=== PATIENT | female | born 1935 | race Caucasian/White ===

== ENCOUNTER 2016-07-05 10:26 | Inpatient (IN) | payer MEDICARE ==
[2016-07-05] VITALS (27 sets, daily range): BP systolic 32–73; BP diastolic 15–59; PULSE 69–118; RESP 0–28; Ht 144.8 cm; Wt 51.1 kg
[~2016-07-05] VITALS: Ht 144.8 cm; Wt 51.1 kg
[2016-07-05] MEDS ORDERED: NACL 0.9% 3 ML SYG IV SCH (11:30)
[2016-07-05] MEDS ORDERED: DOCUSATE SODIUM 100 MG CAP PO PRN (11:30)
[2016-07-05] MEDS ORDERED: ACETAMINOPHEN 325 MG TAB PO PRN (11:30)
[2016-07-05] MEDS ORDERED: morphine 2 MG INJ IV PRN (11:30)
[2016-07-05] MEDS ORDERED: MAGNESIUM HYDROXIDE 30ML CUP PO PRN (11:30)
[2016-07-05] MEDS ORDERED: ONDANSETRON 4 MG INJ IV PRN (11:30)
[2016-07-05] MEDS ORDERED: BISACODYL 10 MG SUPP PR PRN (11:30)
[2016-07-05] MEDS ORDERED: ACETAMINOPHEN 650 MG SUPP PR PRN (11:30)
[2016-07-05] MEDS ORDERED: SOD CHLORIDE 0.9% 1,000 ML IV ONE (11:30)
[2016-07-05] MEDS ORDERED: NORepinephrine 8MG/250 ML (PMX 250 ML ONE (11:40)
--- NOTE | 2016-07-05 11:57 | HP ---
Date/Time of Note Date/Time of Note DATE: 07/05/16 TIME: 11:50 Assessment/Plan VTE Prophylaxis VTE Prophylaxis Intervention: SCD's Assessment/Plan Chief Complaint/Hosp Course Assessment and plan 1. Suspect septic shock. Source at this time unknown. We'll follow up on purcell cultures. Patient remains hypotensive. Continue on IV fluids. We'll follow up on chest x-ray. We'll start empiric antibiotic therapy. Continue vasopressors for now. Will get ID consult 2. History of hypoxemic respiratory failure, vent dependent. We'll get director of physical security follow. Follow up on ABG. We'll check chest radiograph. We'll provide with bronchodilators. 3. History of pneumonia with aspiration. Follow up on x-ray. Continue pulmonary hygiene. Media Marketing Director follow. Continue antibiotics 4. Arterial thrombus right superficial femoral artery with collateral with also occlusion of the right posterior and anterior tibial arteries. Previously seen for this issue with no recommended intervention. Patient still remains with low platelets and high risk for bleed. We will monitor for now. 5. Thrombocytopenia. noted with low platelets. We'll transfuse 2 bags of platelets. 6. History of CKD. Follow up on renal panel 7. History of B cell non-Hodgkin's lymphoma. Of note patient is post excision and chemotherapy in 2009 8. Essential hypertension. Remains hypotensive at present. Continue on vasopressors for now. 9. hx of dyslipidemia. Will follow up fasting lipid panel. Disposition and plan: Patient's overall prognosis is poor. I did get ahold of patient's son: Chinmay, and after discussion. patient is now DNR. Will monitor in ICU. cont supportive care Discussed plan of care with Dr. Castro Problems: HPI/ROS Admit Date/Time Admit Date/Time Jul 05, 2016 at 10:48 Hx of Present Illness This is a 81-year-old female with past medical history of multinodular goiter with partial thyroidectomy, left breast lump likely for breast cancer, excision of neck mass with chemotherapy for B-cell non-Hodgkin's lymphoma, CKD, diastolic heart dysfunction, essential hypertension, dyslipidemia, was transferred out of [facility] respiratory facility after being found hypotensive. 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 It was noted that her previous admission she was initially admitted for a fall with right distal femur fracture. Subsequently after this she had respiratory distress from aspiration and is now vent dependent. She did have previous hospitalization with renal failure and malnutrition as well as thrombocytopenia. Currently patient admitted to ICU. She does remain hypotensive with blood pressure seen as low as 73/17. Labs currently pending. She does remain nonverbal. We will evaluate her for the aforementioned issues. ROS Unable to obtain due to patient's mental state PMH/Family/Social Past Medical History Medical/surgical history multinodular goiter with partial thyroidectomy, left breast lump likely for breast cancer, excision of neck mass with chemotherapy for B-cell non-Hodgkin's lymphoma, CKD, diastolic heart dysfunction, essential hypertension, dyslipidemia Family History Significant Family History: no pertinent family hx Social History Alcohol Use: none Smoking Status: Unknown if ever smoked Drug Use: none Exam/Review of Systems Vital Signs Vitals Vital Signs Date Time Temp Pulse Resp B/P Pulse Ox O2 Delivery O2 Flow Rate FiO2 07/05/16 11:10 111 23 100 35 Exam Exam General: Nonverbal, remains on trach. Hypertensive Eyes: [pupils equal round, Neck: Tracheostomy in place with noted blood clots surrounding Cardiac: [S1, S2 auscultated, regular rhythm and rate] Pulmonary: Coarse lung sounds auscultated bilaterally with noted rails GI: Soft minimally protuberant PEG tube in place Extremities: Edema bilateral upper and lower extremities +2 Skin: Ecchymosis seen on bilateral upper and lower extremities Neurologic: Nonverbal, does not follow commands Medications Medications Current Medications Sodium Chloride (NS) 1,000 ml @ 1,000 mls/hr Q1H ONCE IV Last administered on 07/05/16t 11:24; Admin Dose 1,000 MLS/HR; Start 07/05/16 at 11:30; Stop at 12:29 Ondansetron HCl (Zofran Inj) 4 mg Q6H PRN IV NAUSEA AND/OR VOMITING; Start at 11:30 Acetaminophen (Tylenol Tab) 650 mg Q6H PRN PO PAIN LEVEL 1-3 OR FEVER; Start at 11:30 Acetaminophen (Tylenol Supp) 650 mg Q6H PRN [place] PAIN LEVEL 1-3 OR FEVER; Start 07/05/16 at 11:30 Morphine Sulfate (morphine) 2 mg Q4H PRN IV SEVERE PAIN LEVEL 7-10; Start 07/05 at 11:30 Docusate Sodium (Colace) 100 mg Q12H PRN PO CONSTIPATION; Start 07/05/16 at 11: 30 Magnesium Hydroxide (Milk Of Mag) 30 ml DAILY PRN PO CONSTIPATION; Start at 11:30 Bisacodyl 10 mg 10 mg DAILY PRN [place] CONSTIPATION; Start 07/05/16 at 11:30 Norepinephrine 250 ml @ 1.875 mls/ hr TITRATE IV ; Start 07/05/16 at 12:00; Stop 07/05/16 at 16:00 Cefepime HCl 50 ml @ 100 mls/hr Q24H IVPB ; Start 07/05/16 at 13:00 Norepinephrine/ Dextrose (Levophed/D5W) 500 ml @ 0 mls/hr TITRATE IV ; Start at 16:00 JEFFERY TOURE Jul 05, 2016 11:57
[2016-07-05] MEDS ORDERED: VANCOMYCIN IV PER PHARMACY XX SCH (12:00)
[2016-07-05] MEDS ORDERED: NORepinephrine 8MG/250 ML (PMX 250 ML IV SCH (12:00)
--- NOTE | 2016-07-05 12:00 | RADRPT ---
PROCEDURE: XR Chest. CLINICAL INDICATION: Dyspnea TECHNIQUE: AP portable chest COMPARISON: 07/05/2016 FINDINGS: The cardiomediastinal silhouette is enlarged with tortuosity and atherosclerotic calcification of th e aortic arch. Left base atelectasis. Blunting of the costophrenic angle suggesting small pleural effusions. Mild vascular prominence. Right lower lobe patchy air space disease. . Support devices i n stable position. No pneumothorax. The osseous structures and soft tissues are unremarkable. IMPRESSION: Mild vascular prominence with blunting of the costophrenic angles suggesting small pleural effusions and/or atelectasis. Right lower lobe patchy air space disease. RPTAT:AAJJ Leno Carpenter Physician Date Time Electronically viewed and signed by Leno Carpenter Physician on 07/05/2016 12:00 JANUARY/
--- NOTE | 2016-07-05 12:03 | CONS ---
Date/Time of Note Date/Time of Note DATE: 07/05/16 TIME: 12:03 Consultation Date/Type/Reason Admit Date/Time Jul 05, 2016 at 10:48 Social History Alcohol Use: none Smoking Status: Unknown if ever smoked Drug Use: none Exam/Review of Systems Vital Signs Vitals Vital Signs Date Time Temp Pulse Resp B/P Pulse Ox O2 Delivery O2 Flow Rate FiO2 07/05/16 11:10 111 23 100 35 Medications Medications Current Medications Sodium Chloride (NS) 1,000 ml @ 1,000 mls/hr Q1H ONCE IV Last administered on 07/05/16t 11:24; Admin Dose 1,000 MLS/HR; Start 07/05/16 at 11:30; Stop at 12:29 Ondansetron HCl (Zofran Inj) 4 mg Q6H PRN IV NAUSEA AND/OR VOMITING; Start at 11:30 Acetaminophen (Tylenol Tab) 650 mg Q6H PRN PO PAIN LEVEL 1-3 OR FEVER; Start at 11:30 Acetaminophen (Tylenol Supp) 650 mg Q6H PRN IN PAIN LEVEL 1-3 OR FEVER; Start 07/05/16 at 11:30 Morphine Sulfate (morphine) 2 mg Q4H PRN IV SEVERE PAIN LEVEL 7-10; Start 07/05 at 11:30 Docusate Sodium (Colace) 100 mg Q12H PRN PO CONSTIPATION; Start 07/05/16 at 11: 30 Magnesium Hydroxide (Milk Of Mag) 30 ml DAILY PRN PO CONSTIPATION; Start at 11:30 Bisacodyl 10 mg 10 mg DAILY PRN IN CONSTIPATION; Start 07/05/16 at 11:30 Norepinephrine 250 ml @ 1.875 mls/ hr TITRATE IV ; Start 07/05/16 at 12:00; Stop 07/05/16 at 16:00 Cefepime HCl 50 ml @ 100 mls/hr Q24H IVPB ; Start 07/05/16 at 13:00 Norepinephrine/ Dextrose (Levophed/D5W) 500 ml @ 0 mls/hr TITRATE IV ; Start at 16:00 CARLY AVERY MD Jul 05, 2016 12:03
[2016-07-05 12:17] LABS: HEMATOCRIT 22.9 % (37.0-47.0); HEMOGLOBIN 7.7 g/dl (12.0-16.0); MEAN CORPUSCULAR HEMOGLOBIN 30.5 pg (29.0-33.0); MEAN CORPUSCULAR HGB CONC 33.7 g/dl (32.0-37.0); MEAN CORPUSCULAR VOLUME 90.5 fl (82.0-101.0); MEAN PLATELET VOLUME 9.4 fl (7.4-10.4); RED BLOOD COUNT 2.53 10^6/ul (4.20-5.40); RED CELL DISTRIBUTION WIDTH 17.5 % (11.5-14.5); WHITE BLOOD COUNT 0.9 10^3/ul (4.8-10.8)
[2016-07-05] MEDS ORDERED: PHENYLephrine 20MG IN 250 ML 250 ML ONE (12:22)
[2016-07-05 12:40] LABS: CONDITION 1; LH ANALYZER COMMENTS 1; PLATELET COUNT 14 10^3/UL (140-440); SUSPECT 1
[2016-07-05 12:43] LABS: CK-MB 4.94 ng/ml (0.0-2.4)
[2016-07-05 12:47] LABS: TROPONIN-I 0.034 ng/ml (0.00-0.12)
--- NOTE | 2016-07-05 12:58 | CONS ---
DATE OF ADMISSION: 07/05/2016 DATE OF CONSULTATION: 07/05/2016 TYPE OF CONSULTATION: Pulmonary. REASON FOR CONSULTATION: Septic shock, ventilator management. Thank you, Dr. Castro, for this consultation. HISTORY OF PRESENT ILLNESS: This is a 81-year-old lady who has been a patient at [facility] where she was admitted for ventilator weaning following recent open reduction internal fix ation complicated by respiratory failure requiring tracheostomy, transferred from [facility] to the ICU today for increasing shortness of breath, orthopnea and hypotension requiring i nitiation of vasopressor support. Of note, patient has had worsening thrombocytopenia and leukocyto sis over the past few days, currently being worked up. Complications also include C. difficile coli tis, acute pulmonary embolism, history of partial thyroidectomy for multinodular goiter, history of breast cancer with lumpectomy. MEDICATIONS: Per chart. ALLERGIES: NONE. SOCIAL HISTORY: Ex-smoker, no alcohol, no history of drug use. FAMILY HISTORY: Noncontributory. SYSTEMS REVIEW: A 12-point review of systems currently unable to perform. PHYSICAL EXAMINATION: GENERAL: Chronically ill appearing lady on mechanical ventilation. HEENT: Has a large excision wound with visible drainage around the trachea. VITAL SIGNS: Temperature 94, pulse is 100, blood pressure 100/40 on Levophed. NECK: Trach site as above. CARDIAC: S1, S2, tachycardia. CHEST: Diminished air entry bilaterally. ABDOMEN: Soft, nontender. No guarding or rebound. EXTREMITIES: No cyanosis, clubbing, 2+ edema. NEUROLOGIC: Generalized weakness. LABORATORY DATA: White count 2.3, hemoglobin 8.8, platelets of 14, BUN 85, creatinine 3.07. INR 1. 86. Urinalysis positive for UTI. IMPRESSION AND PLAN: 1. Septic shock, polymicrobial. Causes includes probable pneumonia. 2. Urinary tract infection. 3. Ongoing colitis. 4. Possible skin wound around the tracheostomy site. 5. Chronic respiratory failure secondary to above. 6. History of aortic regurgitation. 7. History of B-cell lymphoma. 7. Dysphagia with percutaneous endoscopic gastrostomy. 8. Acute renal failure with severe metabolic acidosis. PLAN: 1. Continue mechanical ventilation. 2. Continue broad-spectrum antibiotics. 3. Continue hematology/oncology recommendations status post FFP, DDAVP and platelets. 4. Continue with supportive care. The case was discussed with the patient's son, prognosis is very poor. Code status has been changed to full DNR. Will attempt all resuscitative measures in the meantime. Dictated By: AMBIKA MOYA/ANUJA Conf#: [id number] DID#: [id number]
[2016-07-05] MEDS ORDERED: PHENYLephrine 40 MG in DEXTROSE 5% 496 ML IV SCH ×2 (13:00→13:05)
[2016-07-05] MEDS ORDERED: CEFEPIME 1GM/50 ML (PMX) 50 ML IVPB SCH (13:00)
[2016-07-05] MEDS ORDERED: DOPamine-D5W 1.6 MG/ML 250 ML IV SCH (13:30)
[2016-07-05] MEDS ORDERED: PHENYLephrine 20MG IN 250 ML 250 ML IV SCH (13:30)
[2016-07-05 13:39] LABS: ANISOCYTOSIS 1+; LYMPHOCYTES # 0.8 10^3/ul (0.8-2.9)
[2016-07-05 13:40] LABS: BURR CELLS 1+; PLATELET ESTIMATE PLT APPEAR DECREASED
[2016-07-05] MEDS ORDERED: VANCOMYCIN 1 GM in NS 250 ML IVPB ONE (14:00)
[2016-07-05] MEDS ORDERED: morphine (DRIP) 100 MG/D5W 100 ML IV SCH (15:00)
--- NOTE | 2016-07-05 16:44 | CONS ---
DATE OF ADMISSION: 07/05/2016 DATE OF CONSULTATION: 07/05/2016 TYPE OF CONSULTATION: Infectious Disease. REASON FOR CONSULTATION: Antibiotic management. HISTORY OF PRESENT ILLNESS: Veronica Solis is a 81-year-old unfortunate female who was transf erred from [place]. She has past medical history of: 1. Multinodular goiter with partial thyroidectomy. 2. Left breast lump, likely to be breast cancer. 3. Excision of the neck mass with chemotherapy for B cell non-Hodgkin's lymphoma. 4. Chronic renal disease. 5. Diastolic heart dysfunction. 6. Hypertension. 7. Dyslipidemia. She was transferred from [place] respiratory facility after being found hypotensive and probably ence phalopathic. On a previous admission she was admitted for fall with right distal femur fracture. S ubsequently she had respiratory distress an aspiration, and is now ventilator dependent. She did salgado ve previous hospitalizations with renal failure, malnutrition, as well as thrombocytopenia. She cur rently is in the ICU. Her blood pressure is low on admission at 73/17. She is nonverbal. PAST MEDICAL HISTORY: Operations as outlined. FAMILY HISTORY: Noncontributory. SOCIAL HISTORY: She does not smoke, drink, or abuse drugs. ALLERGIES: NONE TO PENICILLIN, SULFA, OR FOODS. MEDICATIONS: Per chart. REVIEW OF SYSTEMS: As per HPI. PHYSICAL EXAMINATION: GENERAL: The patient is a chronically ill-appearing female who is awake, obtunded on a respirator. She is nonverbal. SKIN: Without generalized rash. HEENT: Within normal limits. NECK: Tracheostomy in place without drainage, but with blood clots noted. LYMPH NODES: None palpable. CHEST: Decreased breath sounds at the bases with coarse rhonchi. HEART: Without murmur or gallop. ABDOMEN: Soft, nontender, without organosplenomegaly or masses. It is protuberant. She has a G-tu be in place without discharge. EXTREMITIES: Without cyanosis, clubbing, or edema. RECTAL AND GENITAL: Deferred. NEUROLOGIC: Does not follow commands. She is nonverbal. The patient is currently on norepinephrine to maintain her blood pressure. Her white count was 900, H and H of 7.7 and 22.9, platelet count of 14,000. This is probably post-chemotherapy. She has a CK-MB of 4.94, which may be related to an [place], it probably is. MEDICATIONS: 1. Vancomycin. 2. Morphine. ASSESSMENT AND PLAN: We will continue her on current therapy. We may want to make her a no code. She is a full DNR. We will continue her on mechanical ventilation, broad spectrum antibiotics. I w ill dictate my findings to the hospitalist and to Dr. Castillo. We are dealing with probable septic shock. Causes include pneumonia, urinary tract infection, ongoing colitis, possible skin wound arou nd the tracheostomy site, chronic respiratory failure, B-cell lymphoma, aortic regurgitation, and nu merous other problems. Dictated By: CRISTEL MODI MD, JD/ANUJA Conf#: [id number] DID#: [id number]
--- NOTE | 2016-07-05 19:52 | EN ---
Date/Time of Note Date/Time of Note DATE: 07/05/16 TIME: 19:51 Event Note Medicine Medicine Event Note Call to pronounce patient . Exam: Constitutional: other (unresponsive to deep sternal rub) Eyes: other (pupils fixed and dilated after at least 45s) Neck: other (no carotid pulses palpated or ascultated after at least 45s) Respiratory: other (no respiratory effort noted or ascultated after at least 45s) Cardiovascular: other (no cardiac pulses ascultated after at least 45s) Extremities: other (no femoral pulses palpated after at least 45s ) Neurological: unresponsive Assessment/Plan Patient Pronounced at 1932. summary per primary attending. LAMONT ALVAREZ Jul 05, 2016 19:51
--- NOTE | 2016-07-06 15:24 | DES ---
Date/Time of Note Date/Time of Note DATE: 07/06/16 TIME: 15:00 Discharge/ Summary Admission/Discharge Info Admit Date/Time Jul 05, 2016 at 10:48 Discharge Date/Time Jul 05, 2016 at 19:34 Final Diagnosis 1. Suspect septic shock. with gram negative bacteremia and pneumonia 2. History of hypoxemic respiratory failure, vent dependent. 3. Pneumonia likely from aspiration 4. Arterial thrombus right superficial femoral artery with collateral with also occlusion of the right posterior and anterior tibial arteries. 5. Thrombocytopenia. 6. History of CKD. 7. History of B cell non-Hodgkin's lymphoma. 8. Essential hypertension. 9. hx of dyslipidemia. Will follow up fasting lipid panel. Preliminary Cause of 1. Septic Shock with noted gram negative bacteremia and pneumonia Hospital Course This is a 81-year-old female with past medical history of multinodular goiter with partial thyroidectomy, left breast lump likely for breast cancer, excision of neck mass with chemotherapy for B-cell non-Hodgkin's lymphoma, CKD, diastolic heart dysfunction, essential hypertension, dyslipidemia, was transferred out of [place] respiratory facility after being found hypotensive with respiratory distress. 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 It was noted that her previous admission she was initially admitted for a fall with right distal femur fracture. Subsequently after this she had respiratory distress from aspiration and is now vent dependent. She did have previous hospitalization with renal failure and malnutrition as well as thrombocytopenia. Patient was admitted to ICU. She remained very hypotensive and was provided with IV hydration as well as vasopressors. Patient's son (Chinmay) was notified of patient's condition. We did reconsult pipe threader, infectious disease specialist, as well as oncologist. Chest x-ray was done that did show her to have pulmonary congestion and clinical picture compatible with pneumonia. Patient was placed on broad spectrum antibiotics and we did optimize her with bronchodilators. Surveyor Instrument Assistant did help with vent management. Patient was noted also to be thrombocytopenic and this was likely secondary to her cancer. Oncologist did help with ordering blood products. We did discuss with patient's son the prognosis of the patient. After discussion,l patient was made DNR and eventually patient was made comfort measures only. Patient was with continuous declining blood pressure. At 1932 on 07/05/16, patient was seen and evaluated by Dr. Seema Fraser who pronounced her at that time. Family was notified Discussed case with JEFFERY Huerta Jul 06, 2016 15:10
== END 2016-07-05 19:34 | disposition expired | DRG 871 ==
LOC: ICU 10:48
PROVIDERS: ADMIT Internal Medicine Pulmonary Disease; ATTEND Internal Medicine Pulmonary Disease
PROC: 5A1935Z Respiratory Ventilation, Less than 24 Consecutive Hours (ICD-10-PCS; principal; 2016-07-05)
DX: A41.50 Gram-negative sepsis, unspecified (principal); R65.21 Severe sepsis with septic shock; J69.0 Pneumonitis due to inhalation of food and vomit; N17.9 Acute kidney failure, unspecified; G93.40 Encephalopathy, unspecified; Z99.11 Dependence on respirator [ventilator] status; I74.3 Embolism and thrombosis of arteries of the lower extremities; E87.2 Acidosis; J96.11 Chronic respiratory failure with hypoxia; N39.0 Urinary tract infection, site not specified; E46 Unspecified protein-calorie malnutrition; I13.10 Hypertensive heart and chronic kidney disease without heart failure, with stage 1 through stage 4 chronic kidney disease, or unspecified chronic kidney disease; N18.9 Chronic kidney disease, unspecified; I51.89 Other ill-defined heart diseases; I77.1 Stricture of artery; D69.6 Thrombocytopenia, unspecified; Z85.72 Personal history of non-Hodgkin lymphomas; E78.5 Hyperlipidemia, unspecified; E89.0 Postprocedural hypothyroidism; Z92.21 Personal history of antineoplastic chemotherapy; Z66 Do not resuscitate; Z85.3 Personal history of malignant neoplasm of breast; K52.9 Noninfective gastroenteritis and colitis, unspecified; Z93.0 Tracheostomy status; R13.10 Dysphagia, unspecified; Z93.1 Gastrostomy status; Z68.24 Body mass index [BMI] 24.0-24.9, adult; S72.401D Unspecified fracture of lower end of right femur, subsequent encounter for closed fracture with routine healing; W19.XXXD Unspecified fall, subsequent encounter
CPT/HCPCS: 71010; 82550; 82553; 83605; 84484; 85025; 87040; 94002; J0692; J1265; J2270; J2370; J7030